=== PATIENT | female | born 1970 | race Caucasian/White ===

== ENCOUNTER → 2020-08-05 07:45 | Outpatient (CLI) | payer OTHER, SELFPAY ==
[2020-08-05 19:22] LABS: SARS-CoV-2 RNA PCR Negative
== END ==
PROVIDERS: Visit Provider Obstetrics & Gynecology
DX: Z01.812 Encounter for preprocedural laboratory examination (principal); Z20.822 Contact with and (suspected) exposure to COVID-19
CPT/HCPCS: C9803; U0003; U0005

== ENCOUNTER 2020-08-08 01:24 | Day surgery (SDC) | payer OTHER, SELFPAY ==
[2020-08-03 10:07] VITALS: BMI 33.6
[2020-08-08] MEDS: LACTATED RINGERS 1,000 ML 30 ML IV CONT (10:25)
[2020-08-08] MEDS: ACETAMINOPHEN 500 MG TABLET 1000 MG PO (10:30)
[2020-08-08 10:36] LABS: Hematocrit 41.2 % (37.0-47.0); Hemoglobin 13.3 g/dL (12.0-15.0); Mean Corpuscular HGB Conc 32.3 g/dl (32-36); Mean Corpuscular Volume 77.3 fl (80-100); Mean Platelet Volume 9.7 fl (7.4-10.4); Platelet Count Result 260 k/mm3 (150-375); Red Blood Count 5.33 M/mm3 (4.2-5.4); Red Cell Distribution Width 21.6 % (11.5-14.5); White Blood Count 6.6 K/mm3 (4.5-10.0)
--- NOTE | 2020-08-08 11:19 | WPDANESEPPF ---
Anes - Initial Pre Proc Eval Procedure: Operation Date: 08/08/20 12:00 Proposed Procedures p Hysteroscopy, Dilatation and Curettage with Dotty Endometrial Ablation - Hilary Calderon MD Date/Time: 08/08/20 11:19 Surgeon: Hilary Calderon MD Pre Op Diagnosis: abn uterine bleeding Patient Data Age: 49 Gender: F Height: 1.6 m Weight: 88.45 kg Allergies Allergy/AdvReac Type Severity Reaction Status Date / Time morphine Allergy Mild Itching Verified 08/03/20 09:48 tetracycline Allergy Unknown Unknown Verified 08/03/20 09:48 Home Medications Medication Instructions Recorded Confirmed Type amitriptyline 100 mg PO HS 08/03/20 08/03/20 History calcium carbonate-simethicone 1 tablet PO PRN PRN 08/03/20 08/03/20 History [Tums Anti-Gas/Antacid] ubrogepant [Ubrelvy] 50 mg PO PRN PRN 08/03/20 08/03/20 History Laboratory Tests 08/08/20 10:27 WBC 6.6 K/mm3 K/mm3 (4.5-10.0) RBC 5.33 M/mm3 M/mm3 (4.2-5.4) Hgb 13.3 g/dL g/dL (12.0-15.0) Hct 41.2 % % (37.0-47.0) MCV 77.3 fl L fl (80-100) MCH 25.0 pg L pg (26-34) MCHC 32.3 g/dl g/dl (32-36) RDW 21.6 % H % (11.5-14.5) Plt Count 260 k/mm3 k/mm3 (150-375) MPV 9.7 fl fl (7.4-10.4) Patient hx anesthesia problems: none Family hx anesthesia problems: none PMFSH Past Medical History Medical History (Updated 08/08/20 @ 08:00 by Poli Dubose DO) GERD (gastroesophageal reflux disease) Migraine Renal stones Surgical History Surgical History (Updated 08/08/20 @ 08:00 by Poli Dubose DO) History of x2 Social History Social History Smoking status: Never smoker Living arrangements: with family Spiritual care concerns: No Anes - Eval Final PreProcedure Day of Procedure 08/08/20 11:19 Patient weight: obese Heart: regular rate and rhythm Lungs: clear to auscultation and normal air movement Airway: Mallampati scale class II Neurological: alert and oriented Last oral intake: >/= 8 hours ASA classification: II Emergent: no Anesthetic plan: proceed Anesthesia type and monitoring: general GIVS and standard monitoring Informed Consent: The patient's anesthetic plan and its attendant risks and benefits were discussed with the patient/family/POA. Questions were solicited and answers provided to the satisfaction of the patient/family/POA.
--- NOTE | 2020-08-08 11:26 | WPDHPUPDATE1 ---
History and Physical Update Update Date/Time: 08/08/20 11:26 History and Physical has been reviewed, including an updated exam of the patient. There are NO changes in the patient's condition. Risks, benefits, and alternatives have been discussed and questions answered. Patient agrees to proceed with procedure.
[2020-08-08 13:15] VITALS: BP 146/87; PULSE 108; RESP 14; O2SAT 95
--- NOTE | 2020-08-08 13:25 | PM.PROC ---
Procedure Note - Detailed Date of procedure: 08/08/20 Pre-op diagnosis: abn uterine bleeding Post-op diagnosis: same Procedure performed: hysteroscopy D&C and Endometrial ablation Description of procedure: The patient was taken to the operating room where MAC was found to be adequate. She was then prepared and draped in the dorsal lithotomy position in [facility]. A speculum was used to visualize the cervix and a single toothed tenaculum was placed on the anterior lip. uterus was sounded o 9cm and cervix measured 4cm. Uterine cavity length 5cm. She was then dialted with hegar dilators and the hysteroscope passed with sterile 0.9% saline for distension. A lower uterine segment polyp noted. A sharp currette used to currettage this area and remove the polypoid tissue. The hysteroscope then passed again to ensure it was removed. The Dotty was then prepared and inserted into the uterine cavity. The dotty cavity assessment passed and the procedure began. It went to until there was 7 seconds left before impedence was reached. The Dotty device was removed and the camera reinserted. The Cavity appeared to have adequate coverage and the camera removed. The patient tolerated the procedure well. All sponge lap and needles were correct and silver nitrate used on the right tenaculum site and the patinet was taken to the recovery in stable condition. Anesthesia: GLMA Surgeon: Hilary Calderon MD Estimated blood loss (mL): 50 Drains: No Packing: No Pathology: yes (endometrial currettings) Complications: None Condition: stable Disposition: PACU Findings: lower uterine segment polypoid tissue
[2020-08-08 13:45] VITALS: BP 137/88; PULSE 67; RESP 20
== END 2020-08-08 14:04 | disposition home or self-care (01) ==
PROVIDERS: PCP Family Medicine Sports Medicine; Visit Provider Obstetrics & Gynecology
PROC: 0U5B8ZZ Destruction of Endometrium, Via Natural or Artificial Opening Endoscopic (ICD-10-PCS; CPT 58563; principal; 2020-08-08 12:00)
DX: N93.9 Abnormal uterine and vaginal bleeding, unspecified (principal); N84.0 Polyp of corpus uteri; K21.9 Gastro-esophageal reflux disease without esophagitis; E66.9 Obesity, unspecified; Z68.34 Body mass index [BMI] 34.0-34.9, adult
CPT/HCPCS: 58563; 36415; 85027; 88305; A9270; C9803; J2250; J2704; J3010; J7120; U0003; U0005